=== PATIENT | female | born 1965 | race Caucasian/White ===

== ENCOUNTER → 2017-03-26 | Outpatient (CLI) | payer OTHER ==
[~2017-03-26] VITALS: Ht 157.5 cm; Wt 108.6 kg
[~2017-03-26] MED LIST: ASPIRINEC PO; ATARAX PO; ATENOLOL PO; BENADRYL25 M1 PO; CALCIUM + D 6001 TA1 PO; DIOVAN PO; DIOVAN320 MG PO; ECOTRIN81 M1 PO; FAMOTIDINE PO; FLEXERIL10 MG PO; FUROSEMIDE40 MG PO; HCTZ PO; HYDROCHLOROTHIA25 MG PO; HYDROCODONE-APA1 T54 PO; LORTAB 10-3251 EACH PO; METOPROLOL TAR25 MG; NEURONTIN300 MG PO; OYSTER CALCIUM500 MG PO; PREDNISOLONE5 MG PO; PREMARIN PO; PREMARIN0.9 MG PO; ROBAXIN500 MG PO; SANCTURA; SANCTURA20 M1 PO; VALSARTAN320 MG PO; VISTARIL PO; VIT E PO
--- NOTE | ~2017-03-26 | EKG ---
PATIENT: DAVID CALZADA UNIT #: [id number] Ventricular Rate: 56 BPM Atrial Rate: 56 BPM P-R Interval: 168 ms QRS Duration: 80 ms Q-T Interval: 432 ms QTC Calculation(Bezet): 416 ms P [place]: 14 degrees Calculated R [place]: -3 degrees Calculated T [place]: -5 degrees Diagnosis Line: Sinus bradycardia Diagnosis Line: Otherwise normal ECG Diagnosis Line: When compared with ECG of 06-DEC-2009 10:25, Diagnosis Line: Nonspecific T wave abnormality no longer evident Diagnosis Line: in Anterior leads Diagnosis Line: Confirmed by LUCERO WHITNEY MD ([id number]) on 03/26/2017 Diagnosis Line: 5:18:57 PM INTERPRETING MD: CHELO OLIVIER
[2017-03-26 07:28] LABS: HEMATOCRIT 38.9 % (35.0-45.0); HEMOGLOBIN 13.2 gm/dL (12.0-16.0); MEAN CELL VOLUME 89.6 FL (83-96); MEAN CORPUSCULAR HEMOGLOBIN 30.5 PG (28-34); MEAN PLATELET VOLUME 8.4 FL (6.5-11.5); RED BLOOD COUNT 4.34 X10e (3.90-5.30); RED CELL DISTRIBUTION WIDTH 13.1 % (11.0-15.5); WHITE BLOOD COUNT 6.2 X10e3 (4.0-10.5)
[2017-03-26 07:42] LABS: INR 0.9; PARTIAL THROMBOPLASTIN TIME 23.1 SECONDS (23.5-31.3); PROTHROMBIN TIME (PATIENT) 10.2 SECONDS (10.0-11.7)
[2017-03-26 07:54] LABS: BUN/CREATININE RATIO 28.75; CALCIUM SERUM 9.3 mg/dL (8.4-10.2); CREATININE SERUM 0.8 mg/dL (0.6-1.4); GLOM FILT RATE Estimated 85.4 mL/min (>60); POTASSIUM 5.1 mmol/L (3.5-5.1)
== END | disposition home or self-care (01) ==
LOC: CCVL 06:40
PROVIDERS: Internal Medicine Cardiovascular Disease
DX: R07.89 Other chest pain (principal); E66.9 Obesity, unspecified; R73.9 Hyperglycemia, unspecified; I10 Essential (primary) hypertension; I47.1 Supraventricular tachycardia
CPT/HCPCS: 36415; 80048; 85027; 85610; 85730; 93005; 99152; 99153; C1769; C1887; C1894; J1644; J2250; J3010

== ENCOUNTER → 2017-04-01 | Outpatient (CLI) | payer OTHER ==
--- NOTE | ~2017-04-01 | US138 ---
[facility] A Service of [facility] RADIOLOGY TEXT RESULTS PATIENT: DAVID CALZADA LOCATION: [facility] : 65 UNIT #: [id number] AGE: [address]: Elda Cristina MD SEX: F ORDER DR: [id number] [facility] [address] [place], [place] [address] [id number] O MR#: [id number] Acc #: [id number] NAME: DAVID CALZADA : 1965 SEX: F STUDY DATE/TIME: 04/01/2017 14:43 UNIT: [facility] ROOM: STUDY DESCRIPTION: [facility] [employer] Attending Physician: Elda Cristina M.D. Referring Physician: Elda Cristina M.D. Ordering Physician: Elda Cristina M.D. Primary Care Physician: Torin Justin M.D. MEDICAL IMAGING REPORT This report is preliminary unless electronic signature is present REVISED REPORT SEE ADDENDUM EXAM Right upper extremity arterial duplex, 04/01/2017 HISTORY Status post cardiac catheterization 03/26, sharp radiating pain from wrist to shoulder. FINDINGS There is no flow seen in the right radial artery at the level of the wrist to mid forearm. The brachial artery appears to have biphasic flow with a velocity of 57 cm/sec. The ulnar artery has biphasic flow with a velocity of 63 cm/sec at the wrist, and 72 cm/sec at the mid forearm. 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 There is flow seen in the right brachial artery and ulnar artery. No definite thrombus is seen within the right radial artery. Dictated by... Matthew Kaur M.D. THIS IS AN ELECTRONICALLY VERIFIED REPORT Matthew Kaur M.D. at 04/06/2017 8:57 AM AC/viviane [facility] A Service of [facility] RADIOLOGY TEXT RESULTS PATIENT: DAVID CALZADA LOCATION: [facility] : 65 UNIT #: [id number] AGE: [address]: Elda Cristina MD SEX: F ORDER DR: TD: 04/01/2017 17:17 JOB #: [id number] ADDENDUM EXAM Right arterial duplex addendum, for evaluation of palmar arch. CLINICAL HISTORY Status post right radial artery catheterization 03/26 now with right arm pain. FINDINGS In addition to the previously stated images, the palmar arches are evaluated, there appears to be triphasic flow of the deep arch with a velocity of 33 cm/sec, and biphasic flow of the superficial palmar arch with velocity of 9 cm/sec. JOB #: [id number] Dictated by... Matthew Kaur M.D. THIS IS AN ELECTRONICALLY VERIFIED REPORT Matthew Kaur M.D. at 04/07/2017 8:14 PM BISI/viviane TD: 04/01/2017 20:02 JOB #: [id number] CC: Get/aditya Please Delete MEDICAL IMAGING REPORT Page 1 of 1 COPY
== END | disposition home or self-care (01) ==
LOC: CGUS 13:02
DX: I72.9 Aneurysm of unspecified site (principal); Z98.890 Other specified postprocedural states
CPT/HCPCS: 93931